=== PATIENT | male | born 1975 | race Caucasian/White ===

== ENCOUNTER 2023-04-28 04:00 | Day surgery (SDC) | payer OTHER ==
[2023-04-28] VITALS (197 sets, daily range): BP systolic 108–173; BP diastolic 63–135
[~2023-04-28] VITALS: Ht 182.9 cm; Wt 119.0 kg
[2023-04-28 08:52] LABS: BASO% 0.6 % (0-3); EOS% 7.8 % (0-8); HEMATOCRIT 47.7 % (39.0-50.0); HEMOGLOBIN 16.7 g/dl (14.0-18.0); IMMATURE GRANULOCYTES 1.6 % (0.0-5.0); MEAN CELL VOLUME 96.4 fL CALC (80.0-100.0); MEAN CORPUSCULAR HGB 33.7 pG CALC (26.0-32.0); MONO% 14.2 % (2-13); NEUT# 4.92 thou/uL (1.82-7.42); NEUT% 49.8 % (42-76); RED BLOOD COUNT 4.95 mill/uL (4.70-6.10); RED CELL DISTRI WIDTH 13.2 % (11.5-15.5)
[2023-04-28] MEDS ORDERED: XANAX1 MG PO (09:01)
[2023-04-28] MEDS ORDERED: AMBIEN10 MG PO (09:02)
[2023-04-28 09:03] LABS: ALBUMIN 4.5 g/dL (3.2-5.0); ALKALINE PHOSPHATASE 93 u/l (38-126); ANION GAP 12 (6-22 (CALC)); BILIRUBIN, TOTAL 0.7 mg/dL (0.2-1.3); BUN 17 mg/dL (9-20); BUN/CREATININE RATIO 14 (12-20 (CALC)); CARBON DIOXIDE 25 mmol/l (22-30); CHLORIDE 103 mmol/l (95-108); CREATININE 1.2 mg/dL (0.7-1.3); GFR FOR AFR.AMER. > 60 ML/MIN (>=60 (CALC)); GFR OTHER RACES > 60 ML/MIN (>=60 (CALC)); POTASSIUM 4.6 mmol/l (3.5-5.1); SGOT/AST 125 u/l (17-59); SODIUM 136 mmol/l (137-146); TOTAL PROTEIN 6.8 g/dL (6.3-8.2)
[2023-04-28] MEDS ORDERED: CLONIDINE0.1 MG PO (13:48)
[2023-04-28] MEDS ORDERED: NALTREXONE50 MG PO (13:48)
[2023-04-28] MEDS ORDERED: KLONOPIN2 MG PO (13:50)
[2023-04-29 03:43] VITALS: BP 118/74
[2023-04-29 04:41] VITALS: BP 157/88
[2023-04-29 07:30] LABS: BASO% 0.2 % (0-3); HEMATOCRIT 47.9 % (39.0-50.0); HEMOGLOBIN 17.1 g/dl (14.0-18.0); IMMATURE GRANULOCYTES 1.1 % (0.0-5.0); LYMPH% 3.9 % (15-41); MEAN CORPUSCULAR HGB 33.9 pG CALC (26.0-32.0); MEAN CORPUSCULAR HGB CONC 35.7 g/dL CAL (32.0-36.0); MONO% 5.9 % (2-13); NEUT# 16.44 thou/uL (1.82-7.42); NEUT% 88.9 % (42-76); RED BLOOD COUNT 5.04 mill/uL (4.70-6.10); RED CELL DISTRI WIDTH 12.9 % (11.5-15.5)
[2023-04-29 07:36] VITALS: BP 140/80
[2023-04-29 07:49] LABS: ALBUMIN 4.4 g/dL (3.2-5.0); ALKALINE PHOSPHATASE 73 u/l (38-126); ANION GAP 15 (6-22 (CALC)); BUN 15 mg/dL (9-20); BUN/CREATININE RATIO 14 (12-20 (CALC)); CARBON DIOXIDE 25 mmol/l (22-30); CHLORIDE 105 mmol/l (95-108); CREATININE 1.1 mg/dL (0.7-1.3); GFR FOR AFR.AMER. > 60 ML/MIN (>=60 (CALC)); GFR OTHER RACES > 60 ML/MIN (>=60 (CALC)); MAGNESIUM 2.1 mg/dL (1.6-2.3); POTASSIUM 4.5 mmol/l (3.5-5.1); SGOT/AST 89 u/l (17-59); SODIUM 141 mmol/l (137-146); TOTAL PROTEIN 6.7 g/dL (6.3-8.2)
[2023-04-29 08:04] VITALS: BP 145/97
== END 2023-04-29 13:48 | disposition home or self-care (01) | DRG 897 ==
LOC: ANR 04:00 → MS2 04:00 → ANR 09:00 → MS2 17:13 → ICU 19:53 → MS2 04-29 08:02 → ANR 04-29 13:48
PROVIDERS: ATTEND Anesthesiology
DX: F11.20 Opioid dependence, uncomplicated (principal)
CPT/HCPCS: J0131; J2354; J3475; J3490